=== PATIENT | male | born 1985 | race Caucasian/White ===

== ENCOUNTER 2017-02-12 12:11 | Emergency (ER) | payer OTHER ==
[2017-02-12 12:36] VITALS: BP 128/76; PULSE 72; RESP 18; TEMP 97.5
[2017-02-12] MEDS ORDERED: SODIUM CHLORIDE 0.9% 1,000 ML IV STA (13:01)
--- NOTE | 2017-02-12 13:27 | ED ---
Abdominal Pain HPI - General Chief Complaint: Abdominal Pain Stated Complaint: Vomiting Time Seen by Provider: 02/12/17 12:53 Source: patient, RN notes reviewed Mode of arrival: ambulatory Limitations: no limitations - History of Present Illness Initial Comments: 31-year-old male presents to the emergency department with a chief complaint of jaundice. Patient is a former alcoholic and states he has quit for a few years now. Patient states her last week or so he's noticed some jaundice and some yellowing to the eyes. He started change in urine and he's noticed some white type stool. He denies any pain denies any nausea or vomiting. Mom states she was concerned when she was the end of the eyes so she thought that they should be seen.Patient denies any recent fever, chills, shortness of breath, chest pain , back pain, abdominal pain, nausea vomiting, numbness or tingling, dysuria or hematuria, constipation or diarrhea, headaches or visual changes, or any other current symptoms. - Related Data Home Medications Medication Instructions Recorded Confirmed No Known Home Medications [No 03/16/14 02/12/17 Known Home Medications] Allergies Allergy/AdvReac Type Severity Reaction Status Date / Time No Known Allergies Allergy Verified 02/12/17 13:17 Review of Systems ROS Statement: Those systems with pertinent positive or pertinent negative responses have been documented in the HPI. ROS Other: All systems not noted in ROS Statement are negative. Past Medical History Past Medical History: No Reported History History of Any Multi-Drug Resistant Organisms: None Reported Past Psychological History: Anxiety Smoking Status: Current every day smoker Past Alcohol Use History: Occasional, Rare Past Drug Use History: Marijuana General Exam - General Exam Comments Initial Comments: General: The patient is awake and alert, in no distress, and does not appear acutely ill. Eye: Pupils are equal, round and reactive to light, extra-ocular movements are intact; there is normal conjunctiva bilaterally. jaundice Ears, nose, mouth and throat: There are moist mucous membranes and no oral lesions. Neck: The neck is supple, there is no tenderness. Cardiovascular: There is a regular rate and rhythm. No murmur, rub or gallop is appreciated. Respiratory: Lungs are clear to auscultation, respirations are non-labored, breath sounds are equal. No wheezes, stridor, rales, or rhonchi. Gastrointestinal: Soft, non-distended, non-tender abdomen without masses or organomegaly noted. There is no rebound or guarding present. No CVA tenderness. Bowel sounds are unremarkable. Back: There is no tenderness to palpation in the midline. There is no obvious deformity. No rashes noted. Musculoskeletal: Normal ROM, no tenderness, There is no pedal edema. There is no calf tenderness or swelling. Sensation intact. Pulses equal bilaterally 2+. Neurological: CN II-XII intact, There are no obvious motor or sensory deficits. Coordination appears grossly intact. Speech is normal. Skin: Skin is warm and dry and no rashes or lesions are noted. Psychiatric: Cooperative, appropriate mood & affect, normal judgment. Limitations: no limitations Course Vital Signs 02/12/17 12:34 Temperature 97.5 F L Pulse Rate 72 Respiratory 18 Rate Blood Pressure 128/76 O2 Sat by Pulse 100 Oximetry Medical Decision Making - Medical Decision Making 31-year-old male presents emergency Department chief complaint of jaundice.at this time lab work is reviewed and patient does appear to have acute hepatitis a most likely. At this time patient was informed of the results discussed with like to admit the patient for GI consult continued hydration and observation. The patient states that he has to leave. The patient states that he will leave against product manager medical device. We discussed that he could get worse we discussed this could even lead to . He states that he is not going to be trapped and he was going home at this time he only came here because his mom made him. patient proceeded to walk out of the room. - Lab Data Result diagrams: 02/12/17 13:20 02/12/17 13:20 Lab Results 02/12/17 02/12/17 02/12/17 Range/Units 13:20 13:20 13:20 WBC 8.0 (3.8-10.6) k/uL RBC 4.46 (4.30-5.90) m/uL Hgb 13.7 (13.0-17.5) gm/dL Hct 42.6 (39.0-53.0) % MCV 95.6 (80.0-100.0) fL MCH 30.7 (25.0-35.0) pg MCHC 32.1 (31.0-37.0) g/dL RDW 15.9 H (11.5-15.5) % Plt Count 446 (150-450) k/uL Neutrophils % 59 % Lymphocytes % 27 % Monocytes % 11 % Eosinophils % 1 % Basophils % 1 % Neutrophils # 4.7 (1.3-7.7) k/uL Lymphocytes # 2.1 (1.0-4.8) k/uL Monocytes # 0.9 (0-1.0) k/uL Eosinophils # 0.0 (0-0.7) k/uL Basophils # 0.0 (0-0.2) k/uL PT (9.0-12.0) sec INR (<1.1) APTT (22.0-30.0) sec Sodium 139 (137-145) mmol/L Potassium 4.3 (3.5-5.1) mmol/L Chloride 101 (98-107) mmol/L Carbon Dioxide 30 (22-30) mmol/L Anion Gap 8 mmol/L BUN 12 (9-20) mg/dL Creatinine 0.97 (0.66-1.25) mg/dL Est GFR (MDRD) Af Amer >60 (>60 ml/min/1.73 sqM) Est GFR (MDRD) Non-Af >60 (>60 ml/min/1.73 sqM) Glucose 85 (74-99) mg/dL Plasma Lactic Acid Balwinder (0.7-2.0) mmol/L Calcium 8.7 (8.4-10.2) mg/dL Phosphorus 4.0 (2.5-4.5) mg/dL Magnesium 2.1 (1.6-2.3) mg/dL Total Bilirubin 8.1 H (0.2-1.3) mg/dL AST 422 H (17-59) U/L ALT 931 H (21-72) U/L Alkaline Phosphatase 573 H (38-126) U/L Ammonia (<30) umol/L Total Protein 7.7 (6.3-8.2) g/dL Albumin 3.2 L (3.5-5.0) g/dL Amylase 58 (30-110) U/L Lipase 85 (23-300) U/L Urine Color Urine Appearance (Clear) Urine pH (5.0-8.0) Ur Specific Dolphin (1.001-1.035) Urine Protein (Negative) Urine Glucose (UA) (Negative) Urine Ketones (Negative) Urine Blood (Negative) Urine Nitrite (Negative) Urine Bilirubin (Negative) Urine Urobilinogen (<2.0) mg/dL Ur Leukocyte Esterase (Negative) Urine RBC (0-5) /hpf Urine WBC (0-5) /hpf Ur Squamous Epith Cells (0-4) /hpf Urine Bacteria (None) /hpf Hyaline Casts (0-2) /lpf Urine Mucus (None) /hpf Salicylates <1.0 mg/dL Urine Opiates Screen (NotDetected) Ur Oxycodone Screen (NotDetected) Urine Methadone Screen (NotDetected) Ur Propoxyphene Screen (NotDetected) Acetaminophen <10.0 ug/mL Ur Barbiturates Screen (NotDetected) U Tricyclic Antidepress (NotDetected) Ur Phencyclidine Scrn (NotDetected) Ur Amphetamines Screen (NotDetected) U Methamphetamines Scrn (NotDetected) U Benzodiazepines Scrn (NotDetected) Urine Cocaine Screen (NotDetected) U Marijuana (THC) Screen (NotDetected) Serum Alcohol <10 mg/dL Hepatitis A IgM Ab Reactive Hep Bs Antigen Negative Hep B Core IgM Ab NEGATIVE Hep C IgG Ab Negative (Negative) Heterophile Antibody Negative (Negative) 02/12/17 02/12/17 02/12/17 Range/Units 13:20 13:20 13:26 WBC (3.8-10.6) k/uL RBC (4.30-5.90) m/uL Hgb (13.0-17.5) gm/dL Hct (39.0-53.0) % MCV (80.0-100.0) fL MCH (25.0-35.0) pg MCHC (31.0-37.0) g/dL RDW (11.5-15.5) % Plt Count (150-450) k/uL Neutrophils % % Lymphocytes % % Monocytes % % Eosinophils % % Basophils % % Neutrophils # (1.3-7.7) k/uL Lymphocytes # (1.0-4.8) k/uL Monocytes # (0-1.0) k/uL Eosinophils # (0-0.7) k/uL Basophils # (0-0.2) k/uL PT 10.9 (9.0-12.0) sec INR 1.1 (<1.1) APTT 26.9 (22.0-30.0) sec Sodium (137-145) mmol/L Potassium (3.5-5.1) mmol/L Chloride (98-107) mmol/L Carbon Dioxide (22-30) mmol/L Anion Gap mmol/L BUN (9-20) mg/dL Creatinine (0.66-1.25) mg/dL Est GFR (MDRD) Af Amer (>60 ml/min/1.73 sqM) Est GFR (MDRD) Non-Af (>60 ml/min/1.73 sqM) Glucose (74-99) mg/dL Plasma Lactic Acid Balwinder 1.5 (0.7-2.0) mmol/L Calcium (8.4-10.2) mg/dL Phosphorus (2.5-4.5) mg/dL Magnesium (1.6-2.3) mg/dL Total Bilirubin (0.2-1.3) mg/dL AST (17-59) U/L ALT (21-72) U/L Alkaline Phosphatase (38-126) U/L Ammonia 39 H (<30) umol/L Total Protein (6.3-8.2) g/dL Albumin (3.5-5.0) g/dL Amylase (30-110) U/L Lipase (23-300) U/L Urine Color Dark Brown Urine Appearance Cloudy (Clear) Urine pH 6.0 (5.0-8.0) Ur Specific Dolphin 1.022 (1.001-1.035) Urine Protein 1+ H (Negative) Urine Glucose (UA) Negative (Negative) Urine Ketones Negative (Negative) Urine Blood Negative (Negative) Urine Nitrite Negative (Negative) Urine Bilirubin 4+ H (Negative) Urine Urobilinogen 2.0 (<2.0) mg/dL Ur Leukocyte Esterase Negative (Negative) Urine RBC 3 (0-5) /hpf Urine WBC 16 H (0-5) /hpf Ur Squamous Epith Cells 1 (0-4) /hpf Urine Bacteria Rare H (None) /hpf Hyaline Casts 4 H (0-2) /lpf Urine Mucus Many H (None) /hpf Salicylates mg/dL Urine Opiates Screen Detected H (NotDetected) Ur Oxycodone Screen Not Detected (NotDetected) Urine Methadone Screen Not Detected (NotDetected) Ur Propoxyphene Screen Not Detected (NotDetected) Acetaminophen ug/mL Ur Barbiturates Screen Not Detected (NotDetected) U Tricyclic Antidepress Not Detected (NotDetected) Ur Phencyclidine Scrn Not Detected (NotDetected) Ur Amphetamines Screen Not Detected (NotDetected) U Methamphetamines Scrn Not Detected (NotDetected) U Benzodiazepines Scrn Not Detected (NotDetected) Urine Cocaine Screen Detected H (NotDetected) U Marijuana (THC) Screen Detected H (NotDetected) Serum Alcohol mg/dL Hepatitis A IgM Ab Hep Bs Antigen Hep B Core IgM Ab Hep C IgG Ab (Negative) Heterophile Antibody (Negative) - Radiology Data Radiology results: report reviewed, image reviewed Disposition Clinical Impression: Hepatitis A Disposition: Left Against Medical Advice Referrals: None,Stated [Primary Care Provider] - 1-2 days
[2017-02-12 13:41] LABS: Appearance,Urine Cloudy (Clear); Bacteria,Urine Rare /hpf; Bilirubin,Urine 4+ (Negative); Glucose,Urine (UA) Negative (Negative); Ketones,Urine Negative (Negative); Leukocyte Esterase,Urine Negative (Negative); Mucus,Urine Many /hpf; Nitrite,Urine Negative (Negative); Particle Count 17225; Protein,Urine 1+ (Negative); RBC,Urine 3 /hpf (0-5); Specific Gravity,Urine 1.022 (1.001-1.035); Squamous Epithelial Cell,Urine 1 /hpf (0-4); UA Billing (MACRO vs. MICRO) MICRO; WBC,Urine 16 /hpf (0-5)
[2017-02-12 13:47] LABS: ALT 931 U/L (21-72); AST 422 U/L (17-59); Acetaminophen <10.0 ug/mL; Alcohol <10 mg/dL; Alkaline Phosphatase 573 U/L (38-126); Amylase 58 U/L (30-110); Anion Gap 8 mmol/L; Blood Urea Nitrogen 12 mg/dL (9-20); Calcium 8.7 mg/dL (8.4-10.2); Carbon Dioxide 30 mmol/L (22-30); Chloride 101 mmol/L (98-107); Glucose 85 mg/dL (74-99); Magnesium 2.1 mg/dL (1.6-2.3); Non-African American GFR(MDRD) >60 (>60 ml/min/1.73 sqM); Potassium 4.3 mmol/L (3.5-5.1); Salicylate <1.0 mg/dL; Sodium 139 mmol/L (137-145); Total Bilirubin 8.1 mg/dL (0.2-1.3); Total Protein 7.7 g/dL (6.3-8.2)
[2017-02-12 13:48] LABS: INR 1.1 (<1.1); Partial Thromboplastin Time 26.9 sec (22.0-30.0); Prothrombin Time 10.9 sec (9.0-12.0)
--- NOTE | 2017-02-12 13:59 | XR ---
EXAMINATION TYPE: XR abdomen 2V DATE OF EXAM: 02/12/2017 CLINICAL HISTORY: Nausea and jaundice per tech. Pain per order. TECHNIQUE: Supine and upright views of the abdomen are obtained. COMPARISON: None. FINDINGS: Scattered gas is seen in non-distended small bowel loops. Gas and fecal material is seen in non-distended colon and rectum. There is no visceromegaly, pneumoperitoneum, or abnormal calcifi cation appreciated. The lung bases are clear and the visualized osseous structures are intact. Entir e pelvis is not included. IMPRESSION: Overall nonobstructive bowel gas pattern.
[2017-02-12 14:07] LABS: Basophils % (A) 1 %; CH 30.6; CHCM 32.2; Eosinophils % (A) 1 %; HCT 42.6 % (39.0-53.0); HDW 2.39; HGB 13.7 gm/dL (13.0-17.5); Luc # (Auto) 0.25; Luc % (Auto) 3; Lymphocytes # (A) 2.1 k/uL (1.0-4.8); Lymphocytes % (A) 27 %; MCH 30.7 pg (25.0-35.0); MCHC 32.1 g/dL (31.0-37.0); MCV 95.6 fL (80.0-100.0); Mean Platelet Volume 7.2; Monocytes # (A) 0.9 k/uL (0-1.0); Monocytes % (A) 11 %; Neutrophils # (A) 4.7 k/uL (1.3-7.7); Neutrophils % (A) 59 %; RBC 4.46 m/uL (4.30-5.90); RDW 15.9 % (11.5-15.5); WBC (Perox) 7.33
[2017-02-12 14:17] LABS: Hepatitis B Surface Ag Index 0.11
[2017-02-12 14:22] LABS: Hepatitis B Core IgM Index 0.07
--- NOTE | 2017-02-12 14:25 | US ---
EXAMINATION TYPE: US abdomen limited DATE OF EXAM: 02/12/2017 COMPARISON: Abdominal x-ray from earlier today. CLINICAL HISTORY: RUQ. NV, patient states not having pain. Patient states ate a few hours ago. Jaund ice. EXAM MEASUREMENTS: Liver Length: 20.9 cm Gallbladder Wall: 0.3 cm CHD: 0.2 cm Right Kidney: 11.9 x 5.7 x 5.3 cm Pancreas: wnl as visualized, main pancreatic duct = 1.4 mm Liver: enlarged. Prominent echogenic linear band seen in left lobe- ? ligament Gallbladder: nondistended, no well visualized Evidence for sonographic De Jesus's sign: neg CHD: suboptimal visualization, wnl as seen Right Kidney: wnl Gallbladder is poorly distended and thus suboptimally evaluated. It is noted patient ingested meal in the last few hours. IMPRESSION: Contracted gallbladder. No shadowing mobile gallstones or ultrasound evidence for acute c holecystitis.
[2017-02-12 14:34] LABS: Hepatitis C Virus IgG Ab Negative (Negative); Hepatitis C Virus IgG Index 0.38
== END 2017-02-12 15:07 | disposition left against medical advice (07) ==
LOC: EC 12:11
DX: B15.9 Hepatitis A without hepatic coma (principal); F17.200 Nicotine dependence, unspecified, uncomplicated
CPT/HCPCS: 36415; 74020; 76705; 80053; 80074; 80306; 80320; 81001; 82140; 82150; 83520; 83605; 83690; 83735; 84100; 85025; 85610; 85730; 86308; 87086; 96360; 99284

== ENCOUNTER 2017-02-12 23:27 | Inpatient (IN) | payer OTHER ==
--- NOTE | 2017-02-13 00:05 | ED ---
General Adult HPI - General Chief complaint: Nausea/Vomiting/Diarrhea Stated complaint: Jaundice-Revisit Time Seen by Provider: 02/12/17 23:35 Source: patient, RN notes reviewed, old records reviewed Mode of arrival: ambulatory Limitations: no limitations - History of Present Illness Initial comments: 31-year-old male presenting for jaundice. Patient was seen earlier today for similar complaint. He was found to be hepatitis a positive with evidence of elevated LFTs including hyperbilirubinemia. He was recommended to be admitted at that time for GI evaluation. However, the patient ended up leaving [place] because he had "things to attend to." Patient does admit at this time but he does have a history of IV drug abuse. He denies any other drug abuse. States jaundice began about 2 or 3 days ago. Has had some mild nausea and vomiting associated. He denies any fevers or chills. Denies any significant abdominal pain. He states he has things taken care of and can be admitted at this time. - Related Data Home Medications Medication Instructions Recorded Confirmed No Known Home Medications [No 03/16/14 02/12/17 Known Home Medications] Allergies Allergy/AdvReac Type Severity Reaction Status Date / Time No Known Allergies Allergy Verified 02/12/17 23:33 Review of Systems ROS Statement: Those systems with pertinent positive or pertinent negative responses have been documented in the HPI. ROS Other: All systems not noted in ROS Statement are negative. Past Medical History Past Medical History: No Reported History History of Any Multi-Drug Resistant Organisms: None Reported Past Surgical History: No Surgical Hx Reported Past Psychological History: Anxiety Smoking Status: Current every day smoker Past Alcohol Use History: Occasional, Rare Past Drug Use History: Marijuana General Exam - General Exam Comments Initial Comments: General: Awake and Alert. No acute distress. Does not appear acutely ill. Eyes: ELIER, EOM intact. No nystagmus. Scleral icterus present. HENT: Atraumatic, normocephalic. Mucous membranes moist. Trachea midline. Neck: The neck is supple, there is no tenderness or JVD. Cardiovascular: Regular rate and rhythm. No murmur, rub, or gallop is appreciated. Distal pulses intact. Respiratory: Lungs are clear to auscultation bilaterally. No wheezes, rales, rhonchi. No respiratory distress. Gastrointestinal: Soft, Nontender. No rebound or guarding. Non-distended. Mild hepatomegaly noted. No CVA tenderness. Musculoskeletal: No tenderness. Normal ROM. No gross deformity. No strength deficits. Neurological: A&Ox3. CN II-XII grossly intact, There are no obvious motor or sensory deficits. Coordination appears grossly intact. Speech is normal. Skin: Skin is warm and dry. Jaundice present. Psychiatric: Cooperative, appropriate mood & affect, normal judgment. Limitations: no limitations Course Vital Signs 02/12/17 23:31 Temperature 97.1 F L Pulse Rate 62 Respiratory 16 Rate Blood Pressure 116/78 O2 Sat by Pulse 100 Oximetry Medical Decision Making - Medical Decision Making 31-year-old male presenting for evaluation of jaundice. Patient was found to be hepatitis A positive earlier today. His return to this time for admission for GI evaluation. States he is willing to stay at this time. States he has had some mild nausea associated through the day. He is currently without abdominal pain. He appears stable on initial exam although with jaundice. Repeat lab work ordered. Start IV fluids. Plan for admission. Called and spoke with Dr. Arce, agrees for plan for admission. Requests consult to GI. Disposition Clinical Impression: Hepatitis A, Jaundice, Nausea and vomiting, Elevated LFTs Disposition: ADMITTED IP TO THIS HOSP Condition: Stable Decision to Admit Reason: Admit from EC
[2017-02-13] MEDS ORDERED: NALOXONE 0.4 MG/ML 1 ML VIAL IV PRN (00:10)
[2017-02-13] MEDS ORDERED: IBUPROFEN 400 MG TAB PO PRN (00:10)
[2017-02-13] MEDS ORDERED: MORPHINE SULFATE 4 MG/ML SYRINGE IV PRN (00:10)
[2017-02-13] MEDS ORDERED: ONDANSETRON 4 MG/2 ML VIAL IVP PRN (00:10)
[2017-02-13] MEDS: SODIUM CHLORIDE 0.9% 1,000 ML IV SCH ×3 (00:21→20:06)
[2017-02-13 00:51] LABS: Anisocytosis Slight; Aty Lym Flag Slight; CH 30.9; CHCM 32.9; HCT 41.7 % (39.0-53.0); HGB 13.7 gm/dL (13.0-17.5); MCHC 32.8 g/dL (31.0-37.0); MCV 94.6 fL (80.0-100.0); Mean Platelet Volume 6.6; RDW 16.1 % (11.5-15.5); WBC 8.6 k/uL (3.8-10.6); WBC (Perox) 8.26
[2017-02-13 00:54] LABS: ALT 932 U/L (21-72); AST 408 U/L (17-59); Alkaline Phosphatase 601 U/L (38-126); Amylase 59 U/L (30-110); Anion Gap 9 mmol/L; Blood Urea Nitrogen 11 mg/dL (9-20); Carbon Dioxide 27 mmol/L (22-30); Chloride 101 mmol/L (98-107); Glucose 94 mg/dL (74-99); Non-African American GFR(MDRD) >60 (>60 ml/min/1.73 sqM); Potassium 4.5 mmol/L (3.5-5.1); Sodium 137 mmol/L (137-145); Total Bilirubin 8.1 mg/dL (0.2-1.3)
[2017-02-13 01:13] LABS: Add Differential Manual Differential
[2017-02-13 01:14] LABS: Nucleated Red Blood Cells 0 /100 WBC (0-0); Total Cells Counted 100
[2017-02-13 01:15] LABS: Manual Review Performed; Target Cells Present
[2017-02-13 01:59] VITALS: BMI 21.8
[2017-02-13] MEDS: DEXTROSE 5%-0.45% NACL 1,000 ML IV SCH ×2 (05:31→18:20)
[2017-02-13] MEDS: FAMOTIDINE 20 MG TAB PO SCH ×2 (09:22→20:09)
[2017-02-13] MEDS: ENOXAPARIN 40 MG/0.4 ML SYRINGE SQ SCH (09:23)
--- NOTE | 2017-02-13 11:21 | P.CONS ---
History of Present Illness - Reason for Consult Consult date: 02/13/17 Hepatitis Requesting physician: Philipp Arce - History of Present Illness 31-year-old male admitted with jaundice generalized malaise and fatigue. History of IVDA heroin last usage yesterday. Incarcerated 3 months ago [facility]. Consultation requested for hepatitis. Hepatitis panel reported positive hepatitis A IgM. Heterophile negative. Denies diarrhea fever chills nausea or vomiting. Hepatitis B surface antigen and C antibody nonreactive. Abdominal ultrasound gallbladder is poorly distended suboptimal for study. CBD 0.2 cm. No gallstones. Liver enlarged. 20.9 cm. White count 8.6. Hemoglobin 13.7. Platelet 447. Total bilirubin 8.1. AST 408. ALT 932. Alkaline phosphatase 601. Lipase 63. No history of EtOH abuse or known liver disorders. Review of Systems Constitutional: Denies fever, chills, sweats, weight gain, or loss. HEENT: Negative for migraines, blurred vision or loss, earaches, drainage, tinnitus, oral mucosal lesions, dysphagia, or odynophagia. Cardiac: Negative for chest pain, arrhythmias, or palpitation. Respiratory: Negative for shortness of breath, hemoptysis, cough, or sputum production. Gastrointestinal: See HPI for pertinent findings. Genitourinary: Negative for hematuria, urgency, frequency, polyuria, dysuria, or penile discharge. Musculoskeletal: Negative for muscle aches, swelling, arthritis, and arthralgias. Neurologic: Negative for stroke or TIA. Endocrine: Negative for thyroid problems. Skin: Negative for rash or itching. Psychiatric: Negative history for depression. History of anxiety All systems: negative (See HPI) Past Medical History Past Medical History: No Reported History History of Any Multi-Drug Resistant Organisms: None Reported Past Surgical History: No Surgical Hx Reported Past Psychological History: Anxiety Smoking Status: Former smoker Past Alcohol Use History: Occasional, Rare Past Drug Use History: Marijuana - Past Family History Father Family Medical History: Diabetes Mellitus Mother Family Medical History: No Reported History Medications and Allergies Home Medications Medication Instructions Recorded Confirmed Type No Known Home Medications [No 03/16/14 02/13/17 History Known Home Medications] Allergies Allergy/AdvReac Type Severity Reaction Status Date / Time No Known Allergies Allergy Verified 02/13/17 08:21 Physical Exam Vitals: Vital Signs Temp Pulse Pulse Resp BP BP Pulse Ox 02/13/17 07:33 98.4 F 57 L 18 100/60 96 02/13/17 02:15 97.0 F L 57 L 16 115/71 97 02/13/17 01:01 98.4 F 58 L 18 120/69 96 02/12/17 23:31 97.1 F L 62 16 116/78 100 Intake and Output 02/12/17 02/13/17 02/13/17 22:59 06:59 14:59 Intake Total 500 Balance 500 Intake: Intake, IV Titration 500 Amount Sodium Chloride 0.9% 1, 500 000 ml @ 100 mls/hr IV . Q10H SALLIE Rx#:[id number] Other: Voiding Method Toilet Weight 75 kg 75 kg Patient Weight 02/14/17 06:59 Weight 75 kg General appearance: The patient is alert, oriented, in no acute distress. Jaundice. Sclerae icterus. HET: Head is normocephalic and atraumatic. Pupils are equal and reactive. Oropharynx is clear without lesions. Neck: Supple without lymphadenopathy. Trachea midline. Heart: S1 S2. Regular rate and rhythm. Lungs: No crackles or wheezes are heard. Abdomen: Soft, mild tenderness right upper quadrant, nondistended with bowel sounds. No peritoneal signs. Palpable hepatomegaly. Extremities: Normal skin color and turgor. No cyanosis, rash, ulceration, clubbing, or edema. Radial and pedal pulses are 2/4 bilaterally. Neurological: No focal deficits. Strength and sensation are grossly intact. Results CBC & Chem 7: 02/13/17 00:17 02/13/17 00:17 Labs: Abnormal Lab Results - Last 24 Hours (Table) 02/13/17 02/13/17 Range/Units : 00:17 RDW 16.1 H (11.5-15.5) % Total Bilirubin 8.1 H (0.2-1.3) mg/dL AST 408 H (17-59) U/L ALT 932 H (21-72) U/L Alkaline Phosphatase 601 H (38-126) U/L Albumin 3.3 L (3.5-5.0) g/dL US - abdomen: report reviewed (Dr. Garay) Assessment and Plan (1) Hepatitis A Status: Acute (2) Elevated LFTs Status: Acute (3) Jaundice Status: Acute Plan: 1. Supportive and symptomatic care. 2. Hepatitis C quantitative measurement to rule out acute hepatitis C viral infection. 3. We'll obtain viral studies CMV/EBV. 4. Will follow with you. Thank you for this kind referral and the opportunity to participate in the care of your patient. This consultation was discussed with Dr. Garay. The impression and plan of care have been directed as dictated.
[2017-02-13 12:58] LABS: Appearance,Urine Clear (Clear); Bilirubin,Urine 2+ (Negative); Glucose,Urine (UA) Negative (Negative); Ketones,Urine Negative (Negative); Leukocyte Esterase,Urine Negative (Negative); Nitrite,Urine Negative (Negative); Protein,Urine Negative (Negative); Specific Gravity,Urine 1.008 (1.001-1.035); UA Billing (MACRO vs. MICRO) CHEM; Urobilinogen,Urine <2.0 mg/dL (<2.0)
--- NOTE | 2017-02-13 23:44 | HP ---
DATE OF ADMISSION: 02/13/2017 PRESENTING COMPLAINT: Jaundice. HISTORY OF PRESENTING COMPLAINT: This is a 31-year-old patient with no family doctor. Noticed 2 or 3 days ago body becoming yellow; also noticed strong urine for about a week. Patient up until yesterday was doing IV heroin for a year and a half ( ) patient not sexually active until several months ago; started feeling weak and tired, decided to come in. Patient was using, of course, IV needles. REVIEW OF SYSTEMS: CONSTITUTIONAL: Weak and tired. HEENT: Yellowness. RESPIRATORY: None. CARDIOVASCULAR: None. GASTROINTESTINAL: None. GENITOURINARY: As above. MUSCULOSKELETAL: None. DERMATOLOGICAL: Yellow skin. HEMATOLOGICAL: None. LYMPHATICS: None. PSYCHIATRY: None. NEUROLOGICAL: None. PAST HISTORY: None. PAST SURGICAL HISTORY: None. SOCIAL HISTORY: Lives by himself. Unemployed. Smokes half a pack a day. Was doing IV heroin. No alcohol. FAMILY HISTORY: Diabetes mellitus, type 2. HOME MEDICATIONS: None. ALLERGIES: NONE. PHYSICAL EXAMINATION: VITAL SIGNS ON PRESENTATION: Temperature 97.1, pulse 62, respiration 16, blood pressure 116/78, pulse ox 100% on room air. GENERAL APPEARANCE: Average build. Lying in bed. Tired-appearing. EYES: Pupils equal. Conjunctival icterus present. HEENT: External appearance of nose and ears normal. NECK: JVD not raised. Mass not palpable. RESPIRATORY: Effort normal. LUNGS: Fair air entry. CARDIOVASCULAR: First and second sounds normal. No edema. ABDOMEN: Soft, nontender. Liver and spleen not palpable. LYMPHATIC: No lymph node palpable in neck or axillae. PSYCHIATRY: Alert and oriented x3. Mood and affect normal. NEUROLOGICAL: Pupils equal. Cranial grossly intact. Power and sensation grossly intact. INVESTIGATIONS: White count 8.6, hemoglobin 13.7. Potassium 4.5. Total bilirubin 8.1, AST 408, ALT 932. Bilirubin 2+. Patient's urine drug screen showed positive for opiates, cocaine, marijuana. Abdominal ultrasound showed a contracted gallbladder. Hepatitis A, IgM antibody reactive, hepatitis C IgG antibody is negative. ASSESSMENT: 1. Acute hepatitis A. 2. Urine drug screen positive for marijuana, cocaine, opiates. 3. Acute hepatitis from above. 4. Hyperbilirubinemia. PLAN: GI was consulted. Will keep a close eye on patient's LFTs. Will also send off an HIV. Patient will be kept from any hepatic-offensive drugs. Will follow.
[2017-02-14] MEDS: DEXTROSE 5%-0.45% NACL 1,000 ML IV SCH (04:30)
[2017-02-14 08:08] LABS: INR 1.1 (<1.1); Prothrombin Time 11.3 sec (9.0-12.0)
[2017-02-14 08:13] LABS: Anisocytosis Slight; Basophils # (A) 0.1 k/uL (0-0.2); Basophils % (A) 1 %; CH 30.7; CHCM 32.6; Eosinophils # (A) 0.1 k/uL (0-0.7); Eosinophils % (A) 1 %; HDW 2.53; HGB 12.8 gm/dL (13.0-17.5); Luc # (Auto) 0.31; Luc % (Auto) 4; Lymphocytes # (A) 2.2 k/uL (1.0-4.8); Lymphocytes % (A) 28 %; MCH 31.1 pg (25.0-35.0); MCHC 32.8 g/dL (31.0-37.0); Mean Platelet Volume 6.7; Monocytes # (A) 0.6 k/uL (0-1.0); Monocytes % (A) 8 %; Neutrophils # (A) 4.7 k/uL (1.3-7.7); Neutrophils % (A) 59 %; RBC 4.11 m/uL (4.30-5.90); RDW 16.4 % (11.5-15.5); WBC 7.9 k/uL (3.8-10.6); WBC (Perox) 8.77
[2017-02-14 08:35] VITALS: BP 99/58; PULSE 58; RESP 18; TEMP 98.1
[2017-02-14 08:45] LABS: ALT 681 U/L (21-72); AST 314 U/L (17-59); Alkaline Phosphatase 645 U/L (38-126); Amylase 87 U/L (30-110); Anion Gap 8 mmol/L; Blood Urea Nitrogen 10 mg/dL (9-20); Calcium 8.4 mg/dL (8.4-10.2); Carbon Dioxide 23 mmol/L (22-30); Chloride 107 mmol/L (98-107); Glucose 102 mg/dL (74-99); LDH 591 U/L (313-618); Non-African American GFR(MDRD) >60 (>60 ml/min/1.73 sqM); Phosphorous 3.6 mg/dL (2.5-4.5); Potassium 4.6 mmol/L (3.5-5.1); Sodium 138 mmol/L (137-145); Total Bilirubin 7.2 mg/dL (0.2-1.3); Total Protein 7.5 g/dL (6.3-8.2)
[2017-02-14] MEDS: FAMOTIDINE 20 MG TAB PO SCH (08:49)
[2017-02-14 08:52] LABS: Target Cells Present
[2017-02-14] MEDS: ENOXAPARIN 40 MG/0.4 ML SYRINGE SQ SCH (09:44)
--- NOTE | 2017-02-14 11:15 | P.PN ---
Subjective Principal diagnosis: Hepatitis a 31-year-old male history of IVDA heroin cocaine abuse prior to admission admitted with jaundice malaise acute hepatitis A. LFTs somewhat improved total bili Jevon 7.2. AST 314. ALT 681. Alkaline phosphatase 645. Lipase 302. Objective - Vital Signs Vital signs: Vital Signs Temp 98.1 F 02/14/17 07:00 Pulse 58 L 02/14/17 08:00 Resp 18 02/14/17 08:00 BP 99/58 02/14/17 07:00 Pulse Ox 98 02/14/17 07:00 Intake & Output 02/13/17 02/14/17 02/14/17 18:59 06:59 18:59 Intake Total 600 1100 Balance 600 1100 Weight 75 kg 75 kg Intake: IV 1100 Sodium Chloride 0.9% 1, 1100 000 ml @ 100 mls/hr IV . Q10H SALLIE Rx#:[id number] Oral 600 Other: Voiding Method Toilet Toilet Toilet # Voids 1 1 1 - Exam General appearance: The patient is alert, oriented, in no acute distress. Jaundice. Tired. HET: Head is normocephalic and atraumatic. Pupils are equal and reactive. Sclerae icterus. Oropharynx is clear without lesions. Neck: Supple without lymphadenopathy. Trachea midline. Heart: S1 S2. Regular rate and rhythm. Lungs: No crackles or wheezes are heard. Abdomen: Soft, nontender, nondistended with bowel sounds. No peritoneal signs. No palpable organomegaly or masses. Extremities: Normal skin color and turgor. No cyanosis, rash, ulceration, clubbing, or edema. Radial and pedal pulses are 2/4 bilaterally. Neurological: No focal deficits. Strength and sensation are grossly intact. - Labs CBC & Chem 7: 02/14/17 07:31 02/14/17 07:31 Labs: Abnormal Lab Results - Last 24 Hours (Table) 02/13/17 02/14/17 02/14/17 Range/Units 12:45 07:31 07:31 RBC 4.11 L (4.30-5.90) m/uL Hgb 12.8 L (13.0-17.5) gm/dL RDW 16.4 H (11.5-15.5) % Glucose 102 H (74-99) mg/dL Total Bilirubin 7.2 H (0.2-1.3) mg/dL AST 314 H (17-59) U/L ALT 681 H (21-72) U/L Alkaline Phosphatase 645 H (38-126) U/L Albumin 3.1 L (3.5-5.0) g/dL Lipase 302 H (23-300) U/L Urine Bilirubin 2+ H (Negative) Assessment and Plan (1) Hepatitis A Narrative/Plan: Cannot exclude early hepatitis C with recent IVDA usage quantitative measurement pending. Status: Acute (2) Elevated LFTs Status: Acute (3) Jaundice Status: Acute (4) Heroin abuse Status: Acute Plan: 1. Symptomatic supportive measures. 2. Discharge per medicine. 3. Repeat CMP outpatient setting within a week of discharge. Follow up in GI office in 7-10 days. Assessment and plan a care discussed with Dr. Garay
[2017-02-15 09:14] LABS: EBV - EA (IgG) 6.4 U/mL (<9.0); EBV - EBNA (IgG) 46.1 U/mL (<18.0)
--- NOTE | 2017-02-15 21:40 | DS ---
DATE OF ADMISSION: 02/13/2017 DATE OF DISCHARGE: 02/14/2017 FINAL DIAGNOSES: 1. Acute hepatitis A. 2. Chronic use of marijuana and cocaine. 3. Hyperlipidemia. HOSPITAL COURSE: This patient with jaundice, increased liver enzymes that started to come down by the time of discharge. Patient is tolerating a diet. Patient was seen by Dr. Garay of , who okayed the patient for discharge. Patient is positive for hepatitis A. The patient's AST had come down from 422 to 314, ALT was down from 931 to 681. Hepatitis A is reportable to the local county. Care was discussed with the patient. Patient is to follow up with Dr. Garay on 03/10/2017, follow up with Dr. Kay in 1 week. LABS: CMP in 1 week. On examination, the patient is jaundiced. LUNGS: Clear.
== END 2017-02-14 12:08 | disposition home or self-care (01) | DRG 443 ==
LOC: EC 23:27 → 5MS5E 02-13 00:11
PROVIDERS: ADMIT Hospitalist; ATTEND Hospitalist
DX: B15.9 Hepatitis A without hepatic coma (principal); F11.10 Opioid abuse, uncomplicated; E78.5 Hyperlipidemia, unspecified; F12.90 Cannabis use, unspecified, uncomplicated; F14.90 Cocaine use, unspecified, uncomplicated; F17.200 Nicotine dependence, unspecified, uncomplicated
CPT/HCPCS: 36415; 80053; 81003; 82150; 83615; 83690; 83735; 84100; 85025; 85610; 86644; 86645; 86663; 86664; 86665; 87522; 87535; 96360; 99285

== ENCOUNTER 2017-11-06 10:44 | Inpatient (IN) | payer MEDICAID, OTHER ==
[2017-11-06] MEDS ORDERED: MAG HYDROX/AL HYDROX/SIMETH 30 ML CUP PO PRN (11:49)
[2017-11-06] MEDS ORDERED: ACETAMINOPHEN TAB 325 MG TAB PO PRN (11:49)
[2017-11-06] MEDS ORDERED: MAGNESIUM HYDROXIDE 2,400 MG/10 ML CUP PO PRN (11:49)
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
[2017-11-06] MEDS ORDERED: ONDANSETRON 4 MG TAB PO PRN (12:26)
[2017-11-06] MEDS: NICOTINE 14MG/24HR PATCH TRANSDERM SCH (13:04)
[2017-11-06] MEDS: LOPERAMIDE 2 MG CAP PO PRN (13:04)
[2017-11-06] MEDS: ZIPRASIDONE 20 MG VIAL IM PRN (15:28)
[2017-11-06] MEDS: cloNIDine HCL 0.1 MG TAB PO SCH ×3 (16:31→20:20)
--- NOTE | 2017-11-06 19:35 | CONS ---
CONSULTATION DATE OF SERVICE: 11/06/2017. REASON FOR CONSULTATION: Advice regarding hypertension and multiple other medical issues, requested by Psychiatry. HISTORY OF PRESENT ILLNESS: This 32-year-old gentleman with a past history of anxiety, depression, polysubstance abuse, hypertension, COPD, being followed by Dr. Soto Ge in the outpatient setting, is under psychiatric evaluation. The patient apparently had an extensive history of polysubstance abuse including cocaine and marijuana. The patient apparently recently injected heroin yesterday through a neck vein. The patient apparently reports withdrawal symptoms at this time. There is no history of fevers or rigors, no history of headache, loss of consciousness, seizures. PAST MEDICAL HISTORY: COPD, hypertension, anxiety, depression, polysubstance abuse. MEDICATIONS: Prior to admission, none. ALLERGIES: None. FAMILY HISTORY: History of diabetes in the family. SOCIAL HISTORY: Polysubstance abuse. History of smoking. REVIEW OF SYSTEMS: ENT: No diminished hearing or vision. CARDIOVASCULAR: No angina or palpitations. No cough. GI: No nausea or vomiting. : None. NERVOUS SYSTEM: No numbness or weakness. ALLERGY: None. MUSCULOSKELETAL: As mentioned. HEMATOLOGY: No history of anemia. ENDOCRINE: No history of diabetes or hypothyroidism. CONSTITUTIONAL: As mentioned. DERMATOLOGY: As mentioned. RHEUMATOLOGY: As mentioned. PHYSICAL EXAMINATION: Alert, oriented x4. Pulse 59, blood pressure 120/80, respirations 20, temperature 99.2. HEENT: Conjunctivae normal. Oral mucosa moist. NECK: No jugular venous distention. No lymph node enlargement. Needle tracks present. CARDIOVASCULAR: S1 and S2. LUNGS: Breath sounds diminished in the bases. Few rhonchi. No crackles. ABDOMEN: Soft, nontender. No mass palpable. LEGS: No edema. No swelling. NERVOUS SYSTEM: Higher functions as mentioned earlier. Moves all 4 limbs. No focal motor deficits. LYMPHATICS: No lymph nodes palpable in the neck or axillae. SKIN: The patient is not cooperative for skin exam. Otherwise, needle tracks present. JOINTS: No acute deformity or arthropathy. LABS: Currently not available at this time. ASSESSMENT: 1. History of polysubstance abuse with possible early opiate withdrawal. 2. Chronic obstructive pulmonary disease. 3. Hypertension. 4. History of cocaine, heroin and marijuana. 5. History of anxiety and depression. 6. History of nicotine dependence. 7. FULL CODE. RECOMMENDATIONS: This 32-year-old gentleman who presented with multiple medical issues, at this time I recommend to continue current management and symptomatic treatment. The lungs appear to be clear at this time. I agree with using clonidine for withdrawal and for treating hypertension. Otherwise p.r.n. Ativan may be used. Also recommended substance abuse rehab once the patient is discharged from the psych unit, along with close with primary physician in outpatient setting. The albuterol may be used on a p.r.n. basis. Follow the patient closely with you. See orders for further details. I would also recommend multivitamin supplements and p.r.n. Imodium and Pepcid as well. MMODL / IJN: [id number] /
[2017-11-06] MEDS: QUEtiapine 100 MG TAB PO SCH (20:21)
[2017-11-06] MEDS: FAMOTIDINE 20 MG TAB PO SCH (20:21)
[2017-11-06] MEDS: ALBUTEROL INHALER 60 PUFF/8 GM INHALER INHALATION PRN (20:34)
[2017-11-07] MEDS: cloNIDine HCL 0.1 MG TAB PO SCH ×4 (09:37→21:04)
[2017-11-07] MEDS: FAMOTIDINE 20 MG TAB PO SCH ×3 (09:37→20:19)
[2017-11-07] MEDS: NICOTINE 14MG/24HR PATCH TRANSDERM SCH ×2 (09:37→09:44)
[2017-11-07] MEDS: ONDANSETRON ODT 4 MG TAB PO PRN (12:12)
[2017-11-07] MEDS: LOPERAMIDE 2 MG CAP PO PRN (12:25)
--- NOTE | 2017-11-07 13:52 | P.PN ---
Progress Note - Text Progress Note Date: 11/07/17 Patient was seen for a follow-up examination. He has not been feeling well, gets nauseous and vomits sometimes. He said he still feels suicidal but he has not tried to hurt himself and says he will not do so while in the hospital. He said he is scheduled to go to rehab on of this month. He lives down in bed most of the time and does not attend to groups regularly since he feels sick. He took his Seroquel last night and does not have any adverse effects. This is a white ambulatory male with fair hygiene he is polite and cooperative. He does not show any psychomotor agitation or retardation. His speech is spontaneous and goal-directed. His mood is dull and affect is somewhat constricted in range. He denies hallucinations and delusional thinking. He still reports that he has suicidal thoughts. But he is not planning on doing anything to hurt himself here. He denies homicidal thoughts. He is oriented with adequate memory concentration etc. Plan: Continue Seroquel 100 mg at bedtime and detox according to the protocol. Continue groups and other treatment.
[2017-11-07] MEDS: QUEtiapine 100 MG TAB PO SCH (20:19)
[2017-11-07] MEDS: ALBUTEROL INHALER 60 PUFF/8 GM INHALER INHALATION PRN (20:24)
[2017-11-08] MEDS: cloNIDine HCL 0.1 MG TAB PO SCH ×3 (09:30→20:36)
[2017-11-08] MEDS: NICOTINE 14MG/24HR PATCH TRANSDERM SCH ×2 (09:30→16:24)
[2017-11-08] MEDS: FAMOTIDINE 20 MG TAB PO SCH ×2 (09:30→20:36)
--- NOTE | 2017-11-08 15:41 | P.PN ---
Progress Note - Text Interval history: The patient is found in the quiet room as he slept in there voluntarily overnight. He indicates he continues to experience symptoms of heroin withdrawal. He does state however he ate breakfast and lunch. He reports no vomiting today. He does have continued feeling of nausea. He states he feels depressed he has suicidal ideation. He has not been attending groups. Mental status exam: The patient is alert he makes no eye contact he keeps his eyes closed during the conversation. He refuses to speak to me in an interview room and he was interviewed in the quiet room. He is covered with 2 blankets. He is lying in bed in no acute distress. He reports a depressed mood with suicidal ideation. He reports he can keep himself safe in the hospital. He is reporting no homicidal ideation intent or plan. He is endorsing no auditory or visual hallucinations or any specific delusions. He demonstrates no verbal or physical aggressiveness. He demonstrates no abnormal involuntary movements. Insight and judgment limited. Plan: The patient will continue on his current medication. We will monitor him for safety. He is encouraged to participate in the milieu. He may benefit from use of an antidepressant medication. His initial thyroid screen was abnormal we will repeat.
[2017-11-08] MEDS: LOPERAMIDE 2 MG CAP PO PRN (16:24)
[2017-11-08] MEDS: ONDANSETRON ODT 4 MG TAB PO PRN (17:10)
[2017-11-08] MEDS: QUEtiapine 100 MG TAB PO SCH (20:36)
[2017-11-08] MEDS: ALBUTEROL INHALER 60 PUFF/8 GM INHALER INHALATION PRN (22:18)
[2017-11-09] MEDS: LORazepam 1 MG TAB PO PRN (00:04)
[2017-11-09] MEDS: ZIPRASIDONE 20 MG VIAL IM PRN (01:54)
[2017-11-09] MEDS: NICOTINE 14MG/24HR PATCH TRANSDERM SCH (09:56)
[2017-11-09] MEDS: cloNIDine HCL 0.1 MG TAB PO SCH ×3 (09:56→20:25)
[2017-11-09] MEDS: FAMOTIDINE 20 MG TAB PO SCH ×2 (09:56→20:25)
--- NOTE | 2017-11-09 13:28 | P.PN ---
Progress Note - Text Interval history: The patient is found in his room he follows me to an interview room. The patient states he's been struggling with depressive symptoms for an extended period of time as well as opiate use disorder specifically heroin. He described a scenario in which he started using. He was dating a female that was heroin dependent. He reports his symptoms of withdrawal are improving. He has been isolating and sleeping in his room for most of the day as well as yesterday. He is getting up to go eat lunch. He is encouraged to participate in groups. We discussed medication alternatives in terms of targeting his symptoms of depression. Mental status exam: The patient is a tall thin male appearing his stated age. He has a disheveled appearance he is dressed in his own clothing. He has a lower lip piercing. Eye contact is intermittent. Often he looks down at the floor while he speaks. He describes a depressed mood with low energy. He reports having intermittent thoughts of suicide. He states he doesn't want to kill himself but. Only seem to come back. He is reporting no homicidal ideation. He is reporting no auditory or visual hallucinations he endorses no specific delusions. There is no observed evidence of psychosis. He does not appear hypomanic or manic. Insight and judgment limited. He is oriented to person place and date. Plan: The patient will be started on Wellbutrin XL 150 mg in the morning. This will likely need to be titrated further. We will discontinue the Seroquel and initiate trazodone 50 mg the bedtime for sleep. He is not finding the Seroquel beneficial. Vital signs reviewed. He is instructed to attend groups.
[2017-11-09] MEDS: buPROPion XL 150 MG TAB.ER.24H PO SCH (14:15)
[2017-11-09] MEDS: ONDANSETRON ODT 4 MG TAB PO PRN (14:17)
[2017-11-09] MEDS ORDERED: traZODone HCL 50 MG TAB PO SCH (21:00)
[2017-11-09] MEDS: ALBUTEROL INHALER 60 PUFF/8 GM INHALER INHALATION PRN (21:23)
[2017-11-10] MEDS: cloNIDine HCL 0.1 MG TAB PO SCH (09:06)
[2017-11-10] MEDS: NICOTINE 14MG/24HR PATCH TRANSDERM SCH (09:06)
[2017-11-10] MEDS: FAMOTIDINE 20 MG TAB PO SCH ×2 (09:06→21:07)
[2017-11-10] MEDS: buPROPion XL 150 MG TAB.ER.24H PO SCH (09:06)
--- NOTE | 2017-11-10 12:00 | P.PN ---
Progress Note - Text Progress Note Date: 11/10/17 Patient was seen for routine follow-up examination. He was started on Wellbutrin in the morning and trazodone in the evening by the covering physician over the weekend and his Seroquel was discontinued even though he has history of mood changes. Patient says he feels better on Wellbutrin, has some energy etc. But he does not see any use for taking trazodone at night since it does not help him to sleep well. He has not been taking clonidine for reasons not clear. Apparently he is almost over the withdrawal symptoms from opiates. He said he was accepted to go to a rehab place on the , and can go and stay with his mother until then. He denies any adverse effects from his current medications. This is a white ambulatory male with adequate/good hygiene. He has his tongue and lower lip are pierced and wears studs. He does not show any psychomotor agitation or retardation. His speech is spontaneous relevant and goal- directed. His mood is euthymic to cheerful and affect is appropriate to the thought content. He continues to deny suicidal and homicidal thoughts. He denies hallucinations and delusional thinking. He is well oriented with adequate memory concentration etc. His insight and judgment have improved. Plan: Discontinue trazodone since he said it is not helping him and he is already on Wellbutrin. Discontinue clonidine since he is not taking it. I will continue Wellbutrin since he says it helps him even though it is too early (2 Doses) for anyone with depression to be helped with Wellbutrin and it seems to be a placebo effect. Consider discharging him tomorrow if everything goes well today.
[2017-11-10] MEDS: LORazepam 1 MG TAB PO PRN (21:08)
[2017-11-11] MEDS: LORazepam 1 MG TAB PO PRN (04:10)
[2017-11-11 06:56] VITALS: BP 122/81; PULSE 96; RESP 18; TEMP 97.8
[2017-11-11] MEDS: FAMOTIDINE 20 MG TAB PO SCH (09:17)
[2017-11-11] MEDS: ALBUTEROL INHALER 60 PUFF/8 GM INHALER INHALATION PRN (09:17)
[2017-11-11] MEDS: buPROPion XL 150 MG TAB.ER.24H PO SCH (09:17)
[2017-11-11] MEDS: NICOTINE 14MG/24HR PATCH TRANSDERM SCH (09:17)
--- NOTE | 2017-11-11 10:21 | P.DS ---
Providers Date of admission: 11/06/17 10:44 Expected date of discharge: 11/11/17 Attending physician: Aline Ritter Consults: 11/06/17 11:49 Consult Physician Routine Consulting Provider: Duarte Ghosh Consult Reason/Comments: H & P and medical care Do you want consulting provider notified?: Yes Primary care physician: [facility] Course: Patient had his physical examination psychiatric examination and psychosocial evaluation. He was detoxed according to the protocol. He had nausea vomiting diarrhea etc. which were treated as part of detoxification. He was started on 100 mg of Seroquel at night to help him sleep and with his reported mood changes. However over the weekend his Seroquel was changed to Wellbutrin and trazodone by the weekend psychiatrist since patient reported that Seroquel was not working. But after taking one dose of Wellbutrin patient said he was feeling well and Wellbutrin was working very well. He continued to recover from alcohol intoxication, started to attend groups, socialize with other patients and was interacting with staff members. Since his mother goes to work on Friday he wanted to be discharged today to go home and then to the rehab on the . In view of this it was agreed to discharge him. Today he reported of double vision at times especially on his distant vision. On examination I did not see any abnormality in eye moment or in pupils. Patient did not want to stay in the hospital and get this checked and he opted to go home and see the eye doctor if this problem continues. Condition at the time of discharge: This is a white ambulatory male with good hygiene. He is polite and friendly and cooperative. He does not show any psychomotor agitation or retardation. His speech is spontaneous relevant and goal-directed. His mood is cheerful and affect is appropriate. He denies suicidal and homicidal thoughts, hallucinations and delusional thinking. He is well oriented with good memory concentration general fund of knowledge etc. His insight and judgment have improved. Diagnosis on discharge: Unspecified depressive disorder F 32.9 Opioid use disorder severe F 11.20 Cocaine use disorder severe F 14.20 Antisocial personality disorder F 60.2 NKDA COPD Patient is going home to stay with his mother and then go to the rehab on 2017. He was advised to take his medications as prescribed, not to drink alcohol or use drugs, seek counseling and learn better coping skills, not to drive or operate machinery if he feels sleepy, to go to nearest ER if he gets suicidal or homicidal thoughts. He agreed with all these recommendations. Plan - Discharge Summary Discharge Rx Participant: No New Discharge Prescriptions: New Albuterol Inhaler [Ventolin Hfa Inhaler] 2 puff INHALATION RT-TID PRN #3 puff PRN Reason: Shortness Of Breath Or Wheezing buPROPion XL [Wellbutrin XL] 150 mg PO DAILY 30 Days #30 tab.er.24h Discharge Medication List Albuterol Inhaler [Ventolin Hfa Inhaler] 2 puff INHALATION RT-TID PRN #3 puff [Rx] buPROPion XL [Wellbutrin XL] 150 mg PO DAILY 30 Days #30 tab.er.24h 11/11/17 [Rx ] Follow up Appointment(s)/Referral(s): [facility] [Outside] - 11/17/17 11:00 am (11/17/17 at 1100)
== END 2017-11-11 13:03 | disposition home or self-care (01) | DRG 881 ==
LOC: 3MHU 10:44
PROVIDERS: ADMIT Psychiatry & Neurology Psychiatry; ATTEND Psychiatry & Neurology Psychiatry
DX: F32.9 Major depressive disorder, single episode, unspecified (principal); F11.20 Opioid dependence, uncomplicated; R45.851 Suicidal ideations; F14.20 Cocaine dependence, uncomplicated; F10.129 Alcohol abuse with intoxication, unspecified; F60.2 Antisocial personality disorder; H53.2 Diplopia; I10 Essential (primary) hypertension; J44.9 Chronic obstructive pulmonary disease, unspecified; Z81.3 Family history of other psychoactive substance abuse and dependence; Z83.3 Family history of diabetes mellitus; Z87.891 Personal history of nicotine dependence; Z59.0 Homelessness; Z71.41 Alcohol abuse counseling and surveillance of alcoholic; Z71.51 Drug abuse counseling and surveillance of drug abuser
CPT/HCPCS: 84439; 84443; 94640

== ENCOUNTER 2024-02-08 02:39 | Emergency (ER) | payer OTHER ==
[2024-02-08] MEDS: SODIUM CHLORIDE 0.9% 1,000 ML IV STA (03:15)
[2024-02-08] MEDS: LORazepam 2 MG/ML INJ IV STA (03:16)
[2024-02-08 03:32] LABS: Basophils # (A) 0.1 k/uL (0-0.2); Basophils % (A) 1 %; Eosinophils # (A) 0.1 k/uL (0-0.7); Eosinophils % (A) 1 %; HCT 45.2 % (39.0-53.0); HGB 15.5 gm/dL (13.0-17.5); Lymphocytes # (A) 3.4 k/uL (1.0-4.8); Lymphocytes % (A) 35 %; MCH 31.8 pg (25.0-35.0); MCHC 34.3 g/dL (31.0-37.0); MCV 92.6 fL (80.0-100.0); Mean Platelet Volume 7.5; Monocytes # (A) 0.7 k/uL (0-1.0); Monocytes % (A) 7 %; Neutrophils # (A) 5.1 k/uL (1.3-7.7); Neutrophils % (A) 53 %; Platelet Count 357 k/uL (150-450); RBC 4.88 m/uL (4.30-5.90); RDW 12.8 % (11.5-15.5); WBC 9.7 k/uL (3.8-10.6)
[2024-02-08 03:37] LABS: ALT 195 U/L (4-49); AST 433 U/L (17-59); African American GFR (CKD) >90 (>60 ml/min/1.73 sqM); Albumin 5.1 g/dL (3.5-5.0); Alkaline Phosphatase 119 U/L (38-126); Anion Gap 12 mmol/L; Blood Urea Nitrogen 6 mg/dL (9-20); Calcium 9.5 mg/dL (8.4-10.2); Carbon Dioxide 21 mmol/L (22-30); Chloride 107 mmol/L (98-107); Glucose 135 mg/dL (74-99); Magnesium 1.8 mg/dL (1.6-2.3); Non-African American GFR(CKD) >90 (>60 ml/min/1.73 sqM); Potassium 3.5 mmol/L (3.5-5.1); Sodium 140 mmol/L (137-145); Total Bilirubin 1.1 mg/dL (0.2-1.3); Total Protein 8.8 g/dL (6.3-8.2)
[2024-02-08] MEDS: NICOTINE 21MG/24HR PATCH TRANSDERM STA (04:11)
[2024-02-08 04:41] LABS: Alcohol 207 mg/dL
--- NOTE | 2024-02-08 05:41 | ED ---
General Adult HPI - General Chief complaint: Alcohol Stated complaint: ETOH Withdrawals, DILLAN Time Seen by Provider: 02/08/24 02:50 Source: patient Mode of arrival: ambulatory Limitations: no limitations - History of Present Illness Initial comments: 38-year-old male with past medical history of alcohol abuse who presents emergency department reporting symptoms of alcohol withdrawal. Patient states that he used to be an alcoholic but has been clean for several months. As of a week ago the patient had a bad break-up and states he has been on a isabel. He has been drinking half gallon of vodka a day. States that he is to the point where he wakes up from sleep because of the shakiness. He has been to rehab however states he does not feel that this works for him. He denies suicidal or homicidal ideations - Related Data Previous Rx's Medication Instructions Recorded Albuterol Inhaler [Ventolin Hfa 2 puff INHALATION RT-TID PRN #3 11/11/17 Inhaler] puff buPROPion XL [Wellbutrin XL] 150 mg PO DAILY 30 Days #30 11/11/17 tab.er.24h LORazepam [Ativan] 1 mg PO TID PRN 3 Days #9 tab 02/08/24 Allergies Allergy/AdvReac Type Severity Reaction Status Date / Time No Known Allergies Allergy Verified 02/08/24 02:44 Review of Systems ROS Statement: Those systems with pertinent positive or pertinent negative responses have been documented in the HPI. ROS Other: All systems not noted in ROS Statement are negative. Past Medical History Past Medical History: COPD, Hypertension History of Any Multi-Drug Resistant Organisms: None Reported Past Surgical History: Orthopedic Surgery Additional Past Surgical History / Comment(s): 3 surgical procedures on the left foot. Past Psychological History: Anxiety, Depression Smoking Status: Vaper Past Alcohol Use History: Abuse Past Drug Use History: Cocaine, Heroin, Marijuana - Past Family History Father Family Medical History: Diabetes Mellitus Mother Family Medical History: No Reported History General Exam Limitations: no limitations General appearance: alert, in no apparent distress Head exam: Present: atraumatic, normocephalic, normal inspection Eye exam: Present: normal appearance, PERRL, EOMI. Absent: scleral icterus, conjunctival injection, periorbital swelling ENT exam: Present: normal exam, mucous membranes moist Neck exam: Present: normal inspection. Absent: tenderness, meningismus, lymphadenopathy Respiratory exam: Present: normal lung sounds bilaterally. Absent: respiratory distress, wheezes, rales, rhonchi, stridor Cardiovascular Exam: Present: normal rhythm, tachycardia, normal heart sounds. Absent: systolic murmur, diastolic murmur, rubs, gallop, clicks GI/Abdominal exam: Present: soft, normal bowel sounds. Absent: distended, tenderness, guarding, rebound, rigid Extremities exam: Present: normal inspection, full ROM, normal capillary refill. Absent: tenderness, pedal edema, joint swelling, calf tenderness Back exam: Present: normal inspection Neurological exam: Present: alert, oriented X3, CN II-XII intact Psychiatric exam: Present: normal affect, normal mood Skin exam: Present: warm, dry, intact, normal color. Absent: rash Course Vital Signs 02/08/24 02/08/24 02/08/24 02:44 05:08 06:44 Temperature 97.9 F Pulse Rate 108 H 98 Respiratory 26 H 19 18 Rate Blood Pressure 165/122 130/85 128/88 O2 Sat by Pulse 98 100 Oximetry 02/08/24 08:00 Temperature 98.9 F Pulse Rate 85 Respiratory 16 Rate Blood Pressure 120/85 O2 Sat by Pulse 97 Oximetry Medical Decision Making - Medical Decision Making Was pt. sent in by a medical professional or institution (RIAN Sharp, SIGNS AND DISPLAYS SALESPERSON, urgent care, hospital, or fdc...) When possible be specific @ -No Did you speak to anyone other than the patient for history (EMS, parent, family, police, friend...)? What history was obtained from this source @ -No Did you review nursing and triage notes (agree or disagree)? Why? @ -I reviewed and agree with nursing and triage notes Were old charts reviewed (outside hosp., previous admission, EMS record, old EKG, old radiological studies, urgent care reports/EKG's, fdc records)? Report findings @ -No old charts were reviewed Differential Diagnosis (chest pain, altered mental status, abdominal pain women, abdominal pain men, vaginal bleeding, weakness, fever, dyspnea, syncope, headache, dizziness, GI bleed, back pain, seizure, CVA, palpatations, mental health, musculoskeletal)? @ -Alcohol intoxication, alcohol withdrawal, delirium tremens EKG interpreted by me (3pts min.). @ -Not done X-rays interpreted by me (1pt min.). @ -None done CT interpreted by me (1pt min.). @ -None done U/S interpreted by me (1pt. min.). @ -None done What testing was considered but not performed or refused? (CT, X-rays, U/S, labs)? Why? @ -None What meds were considered but not given or refused? Why? @ -None Did you discuss the management of the patient with other professionals (professionals i.e. , PA, SIGNS AND DISPLAYS SALESPERSON, lab, RT, psych nurse, social worker assistant, rubber compounder supervisor, teacher, special weapons and tactics officer, rn case mgr)? Give summary @ -No Was smoking cessation discussed for >3mins.? @ -No Was critical care preformed (if so, how long)? @ -No Were there social determinants of health that impacted care today? How? (Homelessness, low income, unemployed, alcoholism, drug addiction, lam sportation, low edu. Level, literacy, decrease access to med. care, longterm, rehab)? @ -No Was there de-escalation of care discussed even if they declined (Discuss DNR or withdrawal of care, Hospice)? DNR status @ -No What co-morbidities impacted this encounter? (DM, HTN, Smoking, COPD, CAD, Cancer, CVA, ARF, Chemo, Hep., AIDS, mental health diagnosis, sleep apnea, morbid obesity)? @ -Alcohol abuse Was patient admitted / discharged? Hospital course, mention meds given and route, prescriptions, significant lab abnormalities, going to OR and other pertinent info. @ -Upon arrival patient seen and evaluated in room 24. Thorough history and physical exam was performed. IV was established. Laboratory studies are conducted. Patient was given Ativan and observed in the emergency department fo r several hours. I did discuss the treatment plan. Patient wants to go home. I discussed treatment options. He will be given a short course of Ativan to help him quit drinking. Instructed that he needs to follow-up with his primary care doctor and return for any new or worsening symptoms. Patient agreeable plan was discharged in stable condition Undiagnosed new problem with uncertain prognosis? @ -No Drug Therapy requiring intensive monitoring for toxicity (Heparin, Nitro, Insulin, Cardizem)? @ -No Were any procedures done? @ -No Diagnosis/symptom? @ -Acute alcohol intoxication, history of alcohol abuse Acute, or Chronic, or Acute on Chronic? @ -Acute Uncomplicated (without systemic symptoms) or Complicated (systemic symptoms)? @ -Complicated Side effects of treatment? @ -No Exacerbation, Progression, or Severe Exacerbation? @ -No Poses a threat to life or bodily function? How? (Chest pain, USA, SC, pneumonia, PE, COPD, DKA, ARF, appy, cholecystitis, CVA, Diverticulitis, Homicidal, Suicidal, threat to staff... and all critical care pts) @ -No - Lab Data Result diagrams: 02/08/24 03:13 02/08/24 03:13 Lab Results 02/08/24 02/08/24 Range/Units 03:13 03:13 WBC 9.7 (3.8-10.6) k/uL RBC 4.88 (4.30-5.90) m/uL Hgb 15.5 (13.0-17.5) gm/dL Hct 45.2 (39.0-53.0) % MCV 92.6 (80.0-100.0) fL MCH 31.8 (25.0-35.0) pg MCHC 34.3 (31.0-37.0) g/dL RDW 12.8 (11.5-15.5) % Plt Count 357 (150-450) k/uL MPV 7.5 Neutrophils % 53 % Lymphocytes % 35 % Monocytes % 7 % Eosinophils % 1 % Basophils % 1 % Neutrophils # 5.1 (1.3-7.7) k/uL Lymphocytes # 3.4 (1.0-4.8) k/uL Monocytes # 0.7 (0-1.0) k/uL Eosinophils # 0.1 (0-0.7) k/uL Basophils # 0.1 (0-0.2) k/uL Sodium 140 (137-145) mmol/L Potassium 3.5 (3.5-5.1) mmol/L Chloride 107 (98-107) mmol/L Carbon Dioxide 21 L (22-30) mmol/L Anion Gap 12 mmol/L BUN 6 L (9-20) mg/dL Creatinine 0.85 (0.66-1.25) mg/dL Est GFR (CKD-EPI)AfAm >90 (>60 ml/min/1.73 sqM) Est GFR (CKD-EPI)NonAf >90 (>60 ml/min/1.73 sqM) Glucose 135 H (74-99) mg/dL Calcium 9.5 (8.4-10.2) mg/dL Magnesium 1.8 (1.6-2.3) mg/dL Total Bilirubin 1.1 (0.2-1.3) mg/dL AST 433 H (17-59) U/L ALT 195 H (4-49) U/L Alkaline Phosphatase 119 (38-126) U/L Total Protein 8.8 H (6.3-8.2) g/dL Albumin 5.1 H (3.5-5.0) g/dL Serum Alcohol 207 H* mg/dL Disposition Clinical Impression: Alcohol withdrawal syndrome, Elevated LFTs, Alcoholic intoxication Disposition: HOME SELF-CARE Condition: Stable Instructions (If sedation given, give patient instructions): Alcohol Intoxication (ED) Additional Instructions: Please stop drinking -utilize the Ativan. Follow-up with a therapist. Return to the emergency department for any new or worsening symptoms Prescriptions: LORazepam [Ativan] 1 mg PO TID PRN 3 Days #9 tab PRN Reason: Alcohol Withdrawal Is patient prescribed a controlled substance at d/c from ED?: Yes When asked, does pt state using other controlled substances?: No If prescribed controlled substance>3 days was MAPS reviewed?: Prescribed <3 Days Referrals: Nonstaff,Physician [Primary Care Provider] - 1-2 days Time of Disposition: 07:06
[2024-02-08 08:08] VITALS: BP 120/85; PULSE 85; RESP 16; TEMP 98.9
== END 2024-02-08 08:11 | disposition home or self-care (01) ==
LOC: EC 02:39
DX: F10.239 Alcohol dependence with withdrawal, unspecified (principal); F10.229 Alcohol dependence with intoxication, unspecified; R74.01 Elevation of levels of liver transaminase levels; F17.290 Nicotine dependence, other tobacco product, uncomplicated; F14.90 Cocaine use, unspecified, uncomplicated; F12.90 Cannabis use, unspecified, uncomplicated; Y90.7 Blood alcohol level of 200-239 mg/100 ml
CPT/HCPCS: 82075; 36415; 80053; 83735; 85025; 99284; 96374; 96361; G0480; S4990; J2060; 80320